=== PATIENT | male | born 1985 | race Two or more races ===

== ENCOUNTER 2020-07-25 12:09 | Observation (INO) | payer MEDICAID, OTHER ==
[~2020-07-25] VITALS: Ht 167.6 cm; Wt 82.7 kg
[2020-07-25] MEDS ORDERED: SODIUM CHLORIDE 0.9% 1,000 ML IV ONE ×3 (12:12→18:00)
[2020-07-25] MEDS ORDERED: THIAMINE 100mg/ml INJ (200mg/2ml VIAL) IV ONE (12:15)
[2020-07-25 14:23] LABS: Basophils # (auto) 0 10 ^3/uL (0-0.2); Basophils % (auto) 0.1 % (0.0-2.0); Eosinophils # (auto) 0 10 ^3/uL (0-0.8); Hematocrit 44.6 % (41.0-53.0); Hemoglobin 15.5 g/dL (13.5-17.5); Lymphocytes # (auto) 0.3 10 ^3/uL (0.4-5.4); Lymphocytes % (auto) 2.7 % (10.0-50.0); Mean Corpuscular Hemoglobin 29.2 pg (28.0-32.0); Mean Corpuscular Hgb Conc. 34.7 g/dL (32.0-36.0); Monocytes # (auto) 0.5 10 ^3/uL (0-1.3); Monocytes % (auto) 4.3 % (0.0-12.0); Neutrophils # (auto) 11.7 10 ^3/uL (1.6-8.6); Neutrophils % (auto) 92.9 % (37.0-80.0); Nucleated Red Blood Cells % 0.2 %; Platelet Count (auto) 158 10^3/uL (140-450); Red Blood Cells 5.31 10^6/uL (4.5-5.90); Red Cell Distribution Width 16.8 % (11.8-14.3); White Blood Cell 12.6 10^3/uL (4.4-10.8)
[2020-07-25 15:01] LABS: Alanine Aminotransferase 155 U/L (16-61); Albumin 4.5 g/dL (3.4-5.0); Anion Gap 9 (5-15); Blood Urea Nitrogen 14 mg/dL (7-18); Calcium 9.3 mg/dL (8.5-10.1); Carbon Dioxide 35 mmol/L (21-32); Chloride 85 mmol/L (98-107); Glucose 95 mg/dL (74-106); Sodium 129 mmol/L (136-145)
[2020-07-25 15:07] LABS: Alkaline Phosphatase 82 U/L (45-117); Aspartate Aminotransferase 131 U/L (15-37); BUN/Creatinine Ratio 8.9; GFR African American 64 mL/min; GFR Non-African American 53 mL/min; Total Protein 9.1 g/dL (6.4-8.2)
[2020-07-25 16:23] LABS: Potassium 2.5 mmol/L (3.5-5.1)
[2020-07-25 16:33] LABS: Amphetamine Screen, Urine NEGATIVE (NEGATIVE); Barbiturate Scree,Urine NEGATIVE (NEGATIVE); Benzodiazephine Screen, Urine POSITIVE (NEGATIVE); Cannabinoid Screen, Urine NEGATIVE (NEGATIVE); Cocaine Screen, Urine NEGATIVE (NEGATIVE); Phencyclidine Screen, Urine NEGATIVE (NEGATIVE)
[2020-07-25 16:41] LABS: Opiate Scree,Urine NEGATIVE (NEGATIVE)
[2020-07-25] MEDS ORDERED: cefTRIAXone 1GM/50ML D5W 50 ML IV ONE (16:45)
[2020-07-25] MEDS ORDERED: POTASSIUM EFFERVESENT TAB 25 MEQ PO ONE (16:45)
[2020-07-25 16:55] LABS: Urine Bacteria FEW /hpf (None Seen); Urine Blood 1+ /uL (Negative); Urine Hyaline Cast FEW /lpf (0 - 2); Urine Mucus MODERATE (None Seen); Urine Specific Gravity 1.028 (1.001-1.035); Urine Sperm PRESENT /hpf (None Seen); Urine WBC 11 /hpf (0 - 3)
[2020-07-25] MEDS ORDERED: MORPHINE SULFATE 4 MG/ML SYR/VIAL IV ONE (17:00)
[2020-07-25] MEDS ORDERED: ONDANSETRON HCL 4 MG/2 ML VIAL IV ONE (17:00)
[2020-07-25] MEDS ORDERED: chlordiazePOXIDE HCL 5 MG CAP PO ONE (17:15)
[2020-07-25] MEDS ORDERED: LORazepam 2MG/ML-1ML VIAL ONE (17:38)
[2020-07-25] MEDS ORDERED: ACETAMINOPHEN 325 MG TAB PO PRN (17:45)
[2020-07-25] MEDS ORDERED: LORazepam 2MG/ML-1ML VIAL IV ONE (17:45)
[2020-07-25] MEDS ORDERED: ONDANSETRON HCL 4 MG/2 ML VIAL IV PRN (17:45)
[2020-07-25] MEDS ORDERED: DOCUSATE SOD 100 MG CAP PO PRN (17:45)
[2020-07-25] MEDS ORDERED: LORazepam 2MG/ML-1ML VIAL IV PRN (18:00)
[2020-07-25] MEDS ORDERED: FOLIC ACID 1 MG, MULTIPLE VITAMIN 10 ML, MAGNESIUM SULF SDV 50% 8 MEQ, THIAMINE INJ 100... INJ ONE ×5 (18:15)
--- NOTE | 2020-07-25 20:19 | NUR ---
ms admit from ed pt arrived via stretcher awake, alert and oriented on room air with no distress noted or observed. pt oriented to this nurse, room, bed controls, rest room and use of call light. pt able to transfer from stretcher to bed without incident. rails padded per seizure precaution. pt updated on plan of care. pt bed locked, low and 2x rails up. call light in reach, this nurse encouraged pt to call as needed. this nurse to round q1hr and prn.
[2020-07-25] MEDS: chlordiazePOXIDE HCL 25 MG CAP PO SCH (21:39)
[2020-07-25 22:00] VITALS: BP 141/93
[2020-07-26] MEDS: chlordiazePOXIDE HCL 25 MG CAP PO SCH ×6 (02:13→22:27)
[2020-07-26 05:00] VITALS: BP 126/82
[2020-07-26 06:29] LABS: Basophils # (auto) 0 10 ^3/uL (0-0.2); Basophils % (auto) 0.1 % (0.0-2.0); Eosinophils # (auto) 0 10 ^3/uL (0-0.8); Eosinophils % (auto) 0.1 % (0.0-7.0); Hematocrit 37.8 % (41.0-53.0); Hemoglobin 13.1 g/dL (13.5-17.5); Lymphocytes % (auto) 16.3 % (10.0-50.0); Mean Corpuscular Hemoglobin 29.1 pg (28.0-32.0); Mean Corpuscular Hgb Conc. 34.7 g/dL (32.0-36.0); Mean Corpuscular Volume 83.8 fL (80.0-100.0); Monocytes # (auto) 0.4 10 ^3/uL (0-1.3); Monocytes % (auto) 6.8 % (0.0-12.0); Neutrophils # (auto) 4.8 10 ^3/uL (1.6-8.6); Neutrophils % (auto) 76.7 % (37.0-80.0); Nucleated Red Blood Cells % 0.1 %; Platelet Count (auto) 101 10^3/uL (140-450); Red Blood Cells 4.51 10^6/uL (4.5-5.90); Red Cell Distribution Width 16.9 % (11.8-14.3); White Blood Cell 6.3 10^3/uL (4.4-10.8)
[2020-07-26 06:51] LABS: INR 1.06 (0.9-1.15)
[2020-07-26 06:55] LABS: Folate (Folic Acid) > 24.00 ng/mL (5.38-24)
[2020-07-26 07:02] LABS: Albumin 3.2 g/dL (3.4-5.0); BUN/Creatinine Ratio 13.3; Bilirubin, Total 1.2 mg/dL (0.2-1.0); Calcium 7.8 mg/dL (8.5-10.1); Total Protein 6.4 g/dL (6.4-8.2)
--- NOTE | 2020-07-26 07:15 | NUR ---
Paged Hospitalist for critical potassium of 2.0
[2020-07-26 08:00] VITALS: BP 141/97
--- NOTE | 2020-07-26 08:20 | NUR ---
Informed Hospitalist of potassium level. Orders received and carried out
[2020-07-26] MEDS ORDERED: POTASSIUM CHL 20 Meq TABLET PO ONE (08:30)
[2020-07-26] MEDS: POTASSIUM CHL 20MEQ/100ML 100 ML IV SCH ×2 (08:40→10:29)
[2020-07-26 09:00] VITALS: BP 141/97
[2020-07-26] MEDS: MULTIPLE VITAMIN TAB PO SCH (09:41)
[2020-07-26] MEDS: FOLIC ACID 1 MG TAB PO SCH (09:42)
[2020-07-26] MEDS ORDERED: THIAMINE HCL 100 MG TAB PO SCH (10:00)
--- NOTE | 2020-07-26 11:08 | NUR ---
Dr Jordan bedside with patient
[2020-07-26] MEDS ORDERED: traMADol HCL 50 MG TAB PO PRN (11:15)
[2020-07-26] MEDS ORDERED: KETOROLAC TROMETH 30 MG/ML 1ML VIAL IV ONE (11:15)
[2020-07-26] MEDS: SOD CHL 0.9%/ KCL 40MEQ 1,000 ML IV SCH (13:02)
[2020-07-26 13:48] VITALS: BP 137/91
[2020-07-26 16:56] VITALS: BP 144/79
--- NOTE | 2020-07-26 20:05 | NUR ---
open note assumed care of pt, upon entering room pt awake alert and oriented x4. pt on room air no complaints and denies any pain. pt updated on plan of care. pt bed locked, low and 2x rails up. call light in reach, this nurse to round q1hr and prn. pt encouraged to call as needed.
[2020-07-26 22:00] VITALS: BP 131/93
[2020-07-27] MEDS: chlordiazePOXIDE HCL 25 MG CAP PO SCH ×3 (02:25→09:35)
[2020-07-27] MEDS: SOD CHL 0.9%/ KCL 40MEQ 1,000 ML IV SCH (02:25)
[2020-07-27 05:00] VITALS: BP 130/68
--- NOTE | 2020-07-27 08:00 | NUR ---
OPENING SHIFT NOTE ASSUMED CARE OF PATIENT AWAKE AND ALERT. NO S/S OF DISTRESS NOTED OR COMPLAINTS OF PAIN. PATIENT UPDATED ON POC FOR THE DAY AND ALL QUESTIONS ANSWERED. BED IS IN LOWEST, LOCKED POSITION WITH SIDE RAILS UP X2 AND CALL LIGHT WITHIN REACH. WILL CONTINUE TO MONITOR Q1H AND PRN.
[2020-07-27 09:27] VITALS: BP 168/107
[2020-07-27] MEDS: FOLIC ACID 1 MG TAB PO SCH (09:34)
[2020-07-27] MEDS: MULTIPLE VITAMIN TAB PO SCH (09:35)
[2020-07-27] MEDS ORDERED: THIAMINE 100mg/ml INJ (200mg/2ml VIAL) IV SCH (10:00)
[2020-07-27 10:01] LABS: Basophils # (auto) 0 10 ^3/uL (0-0.2); Basophils % (auto) 0.6 % (0.0-2.0); Eosinophils # (auto) 0 10 ^3/uL (0-0.8); Eosinophils % (auto) 0.9 % (0.0-7.0); Hematocrit 42.6 % (41.0-53.0); Hemoglobin 14.5 g/dL (13.5-17.5); Lymphocytes # (auto) 0.8 10 ^3/uL (0.4-5.4); Lymphocytes % (auto) 14.2 % (10.0-50.0); Mean Corpuscular Volume 85.3 fL (80.0-100.0); Monocytes # (auto) 0.3 10 ^3/uL (0-1.3); Monocytes % (auto) 5.4 % (0.0-12.0); Neutrophils # (auto) 4.2 10 ^3/uL (1.6-8.6); Neutrophils % (auto) 78.9 % (37.0-80.0); Nucleated Red Blood Cells % 0.1 %; Platelet Count (auto) 101 10^3/uL (140-450); Red Blood Cells 4.99 10^6/uL (4.5-5.90); Red Cell Distribution Width 16.3 % (11.8-14.3); White Blood Cell 5.3 10^3/uL (4.4-10.8)
[2020-07-27 10:14] LABS: Albumin 3.4 g/dL (3.4-5.0); Calcium 8.6 mg/dL (8.5-10.1); Potassium 3.2 mmol/L (3.5-5.1)
[2020-07-27 10:17] LABS: BUN/Creatinine Ratio 9.1; Bilirubin, Total 0.7 mg/dL (0.2-1.0)
[2020-07-27] MEDS ORDERED: POTASSIUM CHL 20 Meq TABLET PO ONE (10:30)
--- NOTE | 2020-07-27 12:00 | NUR ---
Discharge instructions given as ordered. Encourage to follow up with PMD as instructed. All questions and concerns addressed. Patient verbalized understanding. IV removed with catheter intact, pressure dressing applied, rizvi catheter removed. Patient taken to vehicle via wheelchair with all personal belongings, accompanied by. No distress noted at time of departure.
--- NOTE | 2020-07-27 15:18 | NUR ---
Patient discharge prior to assessment.
[2020-07-28 11:17] LABS: Hepatitis A Ab IgM Negative; Hepatitis B Core IgM Negative; Hepatitis B Surface Antigen Negative (Negative)
[2020-08-01 13:14] LABS: Hepatitis C Antibody Negative (Negative)
== END 2020-07-27 13:30 | disposition home or self-care (01) ==
LOC: EDBD 12:09 → ER 12:09 → INTOOBSV 12:10 → OVERFLOW 12:10 → CENTRAL 19:50
PROVIDERS: ADMIT Student in an Organized Health Care Education/Training Program; ATTEND Internal Medicine
DX: F10.239 Alcohol dependence with withdrawal, unspecified (principal); R56.9 Unspecified convulsions; K72.90 Hepatic failure, unspecified without coma; E87.1 Hypo-osmolality and hyponatremia; K76.0 Fatty (change of) liver, not elsewhere classified; E87.5 Hyperkalemia; E66.9 Obesity, unspecified; D69.6 Thrombocytopenia, unspecified; E86.0 Dehydration; E87.6 Hypokalemia; K44.9 Diaphragmatic hernia without obstruction or gangrene; R16.0 Hepatomegaly, not elsewhere classified; F41.9 Anxiety disorder, unspecified; R55 Syncope and collapse; N17.9 Acute kidney failure, unspecified; M54.5 Low back pain; Z68.29 Body mass index [BMI] 29.0-29.9, adult; Y90.9 Presence of alcohol in blood, level not specified
CPT/HCPCS: 36415; 71045; 72100; 74176; 76705; 80053; 80074; 80307; 80320; 81001; 82746; 83735; 84132; 84425; 84484; 85025; 85610; 87086; 96361; 96365; 96366; 96367; 96375; 96376; 99285; G0378; J0696; J1885; J2060; J2270; J2405; J3411; J3475; J3480; J7030